=== PATIENT | male | born 1960 | race Caucasian/White ===

== ENCOUNTER 2017-03-12 07:35 | Day surgery (SDC) | payer OTHER ==
[2017-03-12] MEDS ORDERED: DIAZEPAM 5 MG TAB PO ONE (07:45)
[2017-03-12] MEDS ORDERED: diphenhydrAMINE 25 MG CAP PO ONE ×2 (07:45→08:17)
[2017-03-12] MEDS ORDERED: ASPIRIN EC 325 MG TAB PO ONE ×2 (07:45→08:17)
[2017-03-12] MEDS ORDERED: FAMOTIDINE 20 MG TAB PO ONE (07:45)
[2017-03-12] MEDS ORDERED: NS 1,000 ML IV ONE (07:45)
--- NOTE | 2017-03-12 08:03 | CPEKG ---
Heart Rate: 90 RR Interval: 667 P-R Interval: 212 QRSD Interval: 86 QT Interval: 404 QTC Interval: 495 P [place]: 55 QRS [place]: 23 T Wave [place]: 52 EKG Severity - ABNORMAL ECG - EKG Impression: SINUS RHYTHM EKG Impression: FIRST DEGREE AV BLOCK EKG Impression: BORDERLINE T WAVE ABNORMALITIES EKG Impression: BORDERLINE PROLONGED QT INTERVAL Electronically Signed By: Yudi Monique 12-Mar-2017 08:29:57
[2017-03-12] MEDS ORDERED: FAMOTIDINE 20 MG TAB ONE (08:17)
[2017-03-12] MEDS ORDERED: DIAZEPAM 5 MG TAB ONE (08:17)
[2017-03-12 08:24] LABS: % IMMATURE GRANULYOCYTES 0.2 % (0.0-1.1); ABSOLUTE IMMATURE GRANULOCYTES 0.02 10^3/uL (0.00-0.10); ADD DIFF? NO; ADD MORPH? NO; ADD SCAN? NO; ATYPICAL LYMPHOCYTE FLAG 0 (0-99); FRAGMENT RBC FLAG 0 (0-99); HEMATOCRIT 42.2 % (40.0-51.0); HEMOGLOBIN 14.8 g/dL (13.7-17.5); LEFT SHIFT FLG 0 (0-99); LIPEMIA HEMOLYSIS FLAG 90 (0-99); MEAN CELL HEMOGLOBIN 30.6 pg (27.9-34.1); MEAN CELL HEMOGLOBIN CONCENTR. 35.1 g/dL (32.4-36.7); MEAN CELL VOLUME 87.4 fL (81.5-99.8); MEAN PLATELET VOLUME 9.5 fL (8.7-11.7); PLATELET CLUMPS FLAG 10 (0-99); PLATELET COUNT 188 10^3/uL (150-400); RED BLOOD CELL COUNT 4.83 10^6/uL (4.40-6.38); RED CELL DISTRIBUTION WIDTH 12.8 % (11.5-15.2)
[2017-03-12 08:33] LABS: INR 1.14 (0.83-1.16); PROTIME(PATIENT) 14.8 SEC (12.0-15.0)
[2017-03-12 08:49] LABS: ANION GAP 14 mEq/L (8-16); CALCIUM 9.5 mg/dL (8.5-10.4); CARBON DIOXIDE 22 mEq/l (22-31); CHLORIDE 107 mEq/L (97-110); CREATININE 0.8 mg/dL (0.7-1.3); GLOMERULAR FILTRATION RATE > 60; GLUCOSE 179 mg/dL (70-100); POTASSIUM 4.3 mEq/L (3.5-5.2); SODIUM 143 mEq/L (134-144)
[2017-03-12] MEDS ORDERED: LIDOCAINE 1% 300 MG/30 ML SDV ONE (08:51)
[2017-03-12] MEDS ORDERED: VERAPAMIL 5 MG/2 ML VIAL ONE (08:52)
[2017-03-12] MEDS ORDERED: MIDAZOLAM 2 MG/2 ML VIAL ONE (08:52)
[2017-03-12] MEDS ORDERED: HEPARIN 10,000 UNIT/10 ML MDV ONE (08:52)
[2017-03-12] MEDS ORDERED: fentaNYL 100 MCG/2 ML INJ ONE (08:52)
[2017-03-12] MEDS ORDERED: IOPAMIDOL (ISOVUE-370) 150 ML BTL IV ONE (08:53)
[2017-03-12 09:29] LABS: HEMOGLOBIN A1C 6.8 % (4.0-6.0)
[2017-03-12 09:33] LABS: CHOLESTEROL 166 mg/dL (140-220); CHOLESTEROL/HDL RATIO 5.35 RATIO (1.00-4.97); HIGH DENSITY LIPOPROTEIN 31 mg/dL (40-65); LOW DENSITY LIPOPROTEIN 121 mg/dL (80-100); NON-HIGH DENSITY LIPOPROTEIN 135 mg/dL (90-129); TRIGLYCERIDE 74 mg/dL (40-150); VERY LOW DENSITY LIPOPROTEINS 14 mg/dL (8-25)
[2017-03-12] MEDS ORDERED: HYDROCODONE/APAP 5/325 TAB PO PRN (10:41)
[2017-03-12] MEDS ORDERED: ATROPINE SULFATE 1 MG/10 ML SYR IVP PRN (10:41)
[2017-03-12] MEDS ORDERED: ONDANSETRON 4 MG/2 ML VIAL IVP PRN (10:41)
--- NOTE | 2017-03-12 10:45 | PDDXCAT ---
Diagnostic Cath Note - . 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 LAD: Mild irregularities. LCX: Mild irregularities. RCA: Mild irregularities. Complications: None Estimated blood loss: <50ml Closure method: manual pressure Assessment: Mild diffuse coronary atherosclerosis.
== END 2017-03-12 17:19 | disposition home or self-care (01) ==
LOC: FCATH 07:35
PROVIDERS: ATTEND Internal Medicine Interventional Cardiology
PROC: B2111ZZ Fluoroscopy of Multiple Coronary Arteries using Low Osmolar Contrast (ICD-10-PCS; principal; 2017-03-12)
PROC: B2151ZZ Fluoroscopy of Left Heart using Low Osmolar Contrast (ICD-10-PCS; principal; 2017-03-12)
PROC: 4A023N7 Measurement of Cardiac Sampling and Pressure, Left Heart, Percutaneous Approach (ICD-10-PCS; principal; 2017-03-12)
DX: Q23.1 Congenital insufficiency of aortic valve (principal); I71.9 Aortic aneurysm of unspecified site, without rupture; I10 Essential (primary) hypertension; E11.9 Type 2 diabetes mellitus without complications; G47.33 Obstructive sleep apnea (adult) (pediatric)
CPT/HCPCS: J0461; J1644; J2250; J3010; Q9967

== ENCOUNTER → 2017-03-15 | Outpatient (CLI) | payer OTHER ==
[~2017-03-15] MED LIST: IOPAMIDOL (ISOVUE 370) 100 ML BTL IV ONE
== END ==
LOC: CIMAGING 13:55
PROVIDERS: ATTEND Internal Medicine Interventional Cardiology
DX: I99.9 Unspecified disorder of circulatory system (principal); J40 Bronchitis, not specified as acute or chronic; R59.9 Enlarged lymph nodes, unspecified
CPT/HCPCS: 71275-PO; Q9967

== ENCOUNTER 2017-03-16 07:15 | Inpatient (IN) | payer OTHER ==
--- NOTE | 2017-03-12 10:39 | PDHPUP ---
History & Physical Update H&P update statement: This history and physical update is based on an assessment of the patient which was completed after admission or registration (within 24 hours), but prior to the surgery/procedure. H&P update: H&P reviewed & patient examined, no change in patient's condition since H&P completed
--- NOTE | 2017-03-12 10:40 | PDPROPOC ---
Sedation Plan of Care Sedation Plan of Care: vital signs stable, mental status noted, patient educated of risks, benefits, alternatives, patient can tolerate sedation ASA Classification: ASA 2 Planned drugs: fentanyl, midazolam Mallampati Score: Class 2 Mallampati Reference Image:
[2017-04-30] MEDS ORDERED: MUPIROCIN 2% 22 GM OINT NS ONE (06:00)
[2017-04-30] MEDS ORDERED: CITRATE DEXTROSE SOLN 500 ML BAG MISC ONE (06:00)
[2017-04-30] MEDS ORDERED: MANNITOL 25% 12.5 GM/50 ML VIAL IVP ONE (06:00)
[2017-04-30] MEDS ORDERED: NOREPINEPHRINE BITARTRATE 16 MG in NS 250 ML IV ONE (06:00)
[2017-04-30] MEDS ORDERED: SODIUM BICARBONATE 20 MEQ, LIDOCAINE 1% 10 ML in NORMOSOL-R 1,000 ML MISC ONE (06:00)
[2017-04-30] MEDS ORDERED: TRANEXAMIC ACID 1,000 MG in NS (SYRINGE) 50 ML IV ONE (06:00)
[2017-04-30] MEDS ORDERED: DOPamine 400 MG in D5W 250 ML IV ONE (06:00)
[2017-04-30] MEDS ORDERED: ceFAZolin 2 GM/SWFI 2 GM/20 ML SYR IVP ONE (06:00)
[2017-04-30] MEDS ORDERED: INSULIN REGULAR HUMAN 100 UNIT in NS 100 ML IV ONE (06:00)
[2017-04-30] MEDS ORDERED: niCARdipine/NACL 200 ML IV SCH (06:00)
[2017-04-30] MEDS ORDERED: PHENYLEPHRINE HCL 50 MG in NS 250 ML IV ONE (06:00)
[2017-04-30] MEDS ORDERED: MILRINONE/DEXTROSE/100 ML BAG IV ONE (06:15)
[2017-04-30] MEDS ORDERED: CALCIUM CHLORIDE 1 GM/10 ML INJ ONE ×2 (06:15→06:19)
[2017-04-30] MEDS ORDERED: PROTAMINE SULFATE 50 MG/5 ML VIAL IVP ONE (06:15)
[2017-04-30] MEDS ORDERED: HEPARIN 10,000 UNIT/10 ML MDV (1,000 UNIT/ML) ONE ×2 (06:16→06:19)
[2017-04-30] MEDS ORDERED: NA BICARBONATE 50 MEQ/50 ML VIAL ONE (06:16)
[2017-04-30] MEDS ORDERED: ADENOSINE 6 MG/2 ML VIAL ONE (06:17)
[2017-04-30] MEDS ORDERED: DOPamine/DEXTROSE/250 ML BAG IV ONE (06:17)
[2017-04-30] MEDS ORDERED: niCARdipine/NACL/200 ML BAG IV ONE (06:17)
[2017-04-30] MEDS ORDERED: AMIODARONE HCL 150 MG/3 ML VIAL ONE ×2 (06:17→06:20)
[2017-04-30] MEDS ORDERED: ALBUMIN 5% 250 ML BOTTLE IV ONE (06:18)
[2017-04-30] MEDS ORDERED: ceFAZolin 1 GM VIAL ONE (06:18)
[2017-04-30] MEDS ORDERED: LIDOCAINE 2% 100 MG/5 ML SYR ONE (06:19)
[2017-04-30] MEDS ORDERED: MAGNESIUM SULFATE 1 GM/2 ML VIAL ONE (06:20)
[2017-04-30] MEDS ORDERED: CITRATE DEXTROSE SOLN 500 ML BAG ONE (06:20)
[2017-04-30] MEDS ORDERED: methylPREDNISolone SOD SUCC 1 GM/8 ML VIAL ONE (06:20)
--- NOTE | 2017-04-30 06:21 | PDGENHP ---
History and Physical - Chief Complaint severe aortic stenosis - History of Present Illness 56M with severe here for elective valve replacement. Pt reports SMIHT when climbing stairs which has gradually worsened over the past couple months. Denies light-headedness, syncope, chest pain, orthopnea, or LE edema. History Information - Allergies/Home Medication List Allergies/Adverse Reactions: Penicillins Allergy (Verified 04/30/17 08:08) Home Medications: Albuterol [Proventil Inhaler HFA (*)] 1 - 2 puffs IH DAILY PRN 03/08/17 [Last Taken 03/29/17] Aspirin EC [Aspirin EC 81 mg (*)] 81 mg PO DAILY 03/08/17 [Last Taken 04/23/17] Fluticasone/Salmeter 250/50Mcg [Advair 250/50 (*)] 1 puffs IH DAILY PRN [Last Taken 04/28/17] Metoprolol Succinate Xr [Toprol Xl 25 mg (*)] 25 mg PO HS 03/08/17 [Last Taken 04/28/17] metFORMIN HCL [Glucophage 500 mg (*)] 500 mg PO BIDMEAL 03/08/17 [Last Taken ] I have personally reviewed and updated: medical history, social history, surgical history - Past Medical History asthma, diabetes type 2, hypertension Additional medical history: obesity, sleep apnea - Surgical History Additional surgical history: tonsillectomy, vasectomy - Social History Smoking Status: Former smoker Review of Systems Review of Systems: ROS: 10pt was reviewed & negative except for what was stated in HPI & below Physical Exam Physical Exam: Constitutional: no apparent distress, appears nourished, not in pain, obese Eyes: anicteric sclera Ears, Nose, Mouth, Throat: hearing normal Cardiovascular: regular rate and rhythym Respiratory: no respiratory distress Gastrointestinal: soft, non-tender abdomen Skin: warm, normal color Musculoskeletal: full muscle strength Neurologic: AAOx3, sensation intact bilaterally Psychiatric: interacting appropriately, not anxious, not encephalopathic, thought process linear Lab Data & Imaging Review Patient ABO/Rh A POSITIVE 04/28/17 17:55 Antibody Screen NEGATIVE 04/28/17 17:55 All pre-op labs in [facility] reviewed. Visualized and Interpreted Chest x-ray results: Yes Chest X-Ray results: no infiltrate Visualized and Interpreted imaging results: Yes Interpretation: 02/2017 CT chest: aortic root 2.8 cm, aorta at PA 3.5 cm. 2016 ECHO: severe calcified , AV mean gradient 91 mmHg, mild MR diastolic dysfunction, EF 59% Visualized and Interpreted EKG results: Yes EKG Interpretation: Positive for: normal sinsus rhythm EKG additional interpertation: 1st degree AV block Assessment & Plan Assessment: 56M with severe Plan: AVR, possible root replacement
[2017-04-30] MEDS ORDERED: LR 1,000 ML IV ONE (06:24)
[2017-04-30] MEDS ORDERED: MIDAZOLAM 2 MG/2 ML VIAL IVP ONE (07:10)
[2017-04-30] MEDS ORDERED: MIDAZOLAM 2 MG/2 ML VIAL ONE (07:11)
--- NOTE | 2017-04-30 07:11 | PDANEPAE ---
ANE History of Present Illness here for avr ANE Past Medical History - Cardiovascular History Hx Hypertension: Yes Hx Coronary Artery / Peripheral Vascular Disease: Yes Cardiovascular History Comment: HYPERLIPIDEMIA. AORTIC ANEURYSM. AORTIC VALVE STENOSIS. BICUSPID AORTIC VALVE - Pulmonary History Hx COPD: No Hx Asthma/Reactive Airway Disease: Yes Hx Recent Upper Respiratory Infection: No Hx Oxygen in Use at Home: No Hx Sleep Apnea: Yes Sleep Apnea Screening Result - Last Documented: Positive Pulmonary History Comment: SEASONAL/ENVIRONMENTAL ALLERGIES. POS SLEEP APNEA W/ CPAP - Neurologic History Hx Cerebrovascular Accident: No Hx Seizures: No Hx Dementia: No - Endocrine History Hx Diabetes: Yes Endocrine History Comment: DM II - METFORMIN. A1C 7.1 - Renal History Hx Renal Disorders: No Renal History Comment: KIDNEY STONES IN PAST - LITHOTRIPSY - Liver History Hx Hepatic Disorders: No - Neurological & Psychiatric Hx Hx Neurological and Psychiatric Disorders: No - Cancer History Hx Cancer: No - Congenital Disorder History Hx Congenital Disorders: No - GI History Hx Gastrointestinal Disorders: No - Other Health History Other Health History: NEG - Chronic Pain History Chronic Pain: No - Surgical History Prior Surgeries: LITHOTRIPSY. TONSILLECTOMY. VASECTOMY. COLONOSCOPY ANE Review of Systems Review of systems is: negative Review of Systems: - Exercise capacity Exercise capacity: <4 METS METS (RN): 3 METS ANE Patient History - Allergies Allergies/Adverse Reactions: Penicillins Allergy (Verified 04/30/17 06:40) - Home Medications Home medications: home medication list seen and reviewed Home Medications: Albuterol [Proventil Inhaler HFA (*)] 1 - 2 puffs IH DAILY PRN 03/08/17 [Last Taken 03/29/17] Aspirin EC [Aspirin EC 81 mg (*)] 81 mg PO DAILY 03/08/17 [Last Taken 04/23/17] Fluticasone/Salmeter 250/50Mcg [Advair 250/50 (*)] 1 puffs IH DAILY PRN [Last Taken 04/28/17] Metoprolol Succinate Xr [Toprol Xl 25 mg (*)] 25 mg PO HS 03/08/17 [Last Taken 04/28/17] metFORMIN HCL [Glucophage 500 mg (*)] 500 mg PO BIDMEAL 03/08/17 [Last Taken ] - NPO status NPO Status: no food or drink >8 hours NPO Since - Liquids (Date): 04/29/17 NPO Since - Liquids (Time): 21:00 NPO Since - Solids (Date): 04/29/17 NPO Since - Solids (Time): 20:00 - Smoking Hx Smoking Status: Former smoker ANE Labs/Vital Signs - Vital Signs Vital Signs: reviewed preoperatively; see RN documention for details Blood Pressure: 159/110 Heart Rate: 95 Respiratory Rate: 17 O2 Sat (%): 94 Height: 168.91 cm Weight: 99.337 kg ANE Physical Exam - Airway Neck exam: FROM, short neck Mallampati Score: Class 1 - Pulmonary Pulmonary: no respiratory distress - Cardiovascular Cardiovascular: regular rate and rhythym - ASA Status ASA Status: IV ANE Anesthesia Plan Anesthesia Plan: general endotracheal anesthesia Lines/Monitors: central line, PETER
[2017-04-30] MEDS ORDERED: fentaNYL 250 MCG/5 ML INJ ONE ×2 (07:13→11:08)
[2017-04-30] MEDS ORDERED: PROPOFOL/EMULSION 500 MG/50 ML BOTTLE IV ONE (07:14)
[2017-04-30] MEDS ORDERED: KETAMINE 200 MG/20 ML VIAL ONE (07:18)
[2017-04-30] MEDS ORDERED: DEXMEDETOMIDINE HCL 400 MCG in D5W 100 ML IV SCH (11:00)
[2017-04-30] MEDS ORDERED: DEXMEDETOMIDINE IN 0.9 % NACL 50 ML IV SCH (11:00)
[2017-04-30] MEDS ORDERED: DEXMEDETOMIDINE/NS 4MCG/ML 50 ML BTL IV ONE (11:03)
[2017-04-30] MEDS ORDERED: MINERAL OIL 10 ML VIAL ONE (11:45)
[2017-04-30] MEDS ORDERED: MEPERIDINE 25 MG/ML SYR IVP PRN (12:19)
[2017-04-30] MEDS ORDERED: MAGNESIUM SULF 2 GM/WATER 50 ML IV ONE (12:19)
[2017-04-30] MEDS ORDERED: ONDANSETRON 4 MG/2 ML VIAL IVP PRN (12:19)
[2017-04-30] MEDS ORDERED: MAGNESIUM HYDROXIDE 30 ML UDCUP PO PRN (12:19)
[2017-04-30] MEDS ORDERED: ONDANSETRON DISINTEGRATING 4 MG TAB PO PRN (12:19)
[2017-04-30] MEDS ORDERED: BISACODYL 10 MG SUPP PR PRN (12:19)
[2017-04-30] MEDS ORDERED: METOCLOPRAMIDE 10 MG/2 ML VIAL IVP PRN (12:19)
[2017-04-30] MEDS ORDERED: PANTOPRAZOLE SODIUM 40 MG VIAL IVP ONE (12:19)
[2017-04-30] MEDS ORDERED: D50W 25 GM/50 ML SYR IVP PRN (12:19)
[2017-04-30] MEDS ORDERED: LACTULOSE 20 GM/30 ML UDCUP PO PRN (12:19)
[2017-04-30] MEDS ORDERED: POTASSIUM Cl (KCl) 50 ML IV PRN (12:19)
[2017-04-30] MEDS ORDERED: ACETAMINOPHEN 650 MG SUPP PR PRN (12:19)
[2017-04-30] MEDS ORDERED: SODIUM CL NASAL 45 ML BTL EACHNARE PRN (12:19)
[2017-04-30] MEDS ORDERED: POLYETHYLENE GLYCOL 3350 17 GM PKT PO PRN (12:19)
[2017-04-30] MEDS ORDERED: CEPACOL LOZENGE PO PRN (12:19)
[2017-04-30] MEDS ORDERED: ACETAMINOPHEN 325 MG TAB PO PRN (12:19)
[2017-04-30] MEDS ORDERED: NS 1,000 ML IV SCH (12:30)
[2017-04-30] MEDS ORDERED: INSULIN REGULAR HUMAN 100 UNIT in NS 100 ML IV SCH (12:30)
[2017-04-30] MEDS ORDERED: SODIUM BICARBONATE 50 MEQ/50 ML SYR ONE (13:05)
[2017-04-30] MEDS: ALBUMIN 5% 250 ML IV PRN ×2 (13:13→20:23)
[2017-04-30] MEDS: fentaNYL 100 MCG/2 ML INJ IVP PRN ×4 (13:14→23:26)
[2017-04-30] MEDS ORDERED: SODIUM BICARBONATE 50 MEQ/50 ML SYR IV ONE ×2 (13:15→14:00)
--- NOTE | 2017-04-30 13:51 | GOP ---
[f rep st] OPERATIVE REPORT DATE OF OPERATION: 04/30/2017 SURGEON: Piyush Weber DO SUPERIOR COURT JUDGE: Keyshawn Ricks PA-C. PREOPERATIVE DIAGNOSIS: 1. Critical aortic stenosis with aortic insufficiency. 2. Small aortic anulus and outflow tract as well as sinotubular junction. 3. Severe left ventricular hypertrophy. 4. Morbid obesity. POSTOPERATIVE DIAGNOSIS: 1. Critical aortic stenosis with aortic insufficiency. 2. Small aortic anulus and outflow tract as well as sinotubular junction. 3. Severe left ventricular hypertrophy. 4. Morbid obesity. PROCEDURE PERFORMED: 1. Aortic root replacement with a #23 Freestyle with reimplantation of the coronary arteries and rep lacement of the proximal ascending aorta. 2. Atrial clip of the left atrial appendage. FINDINGS: DESCRIPTION OF PROCEDURE: Patient was consented for severely symptomatic aortic stenosis. He was br ought to the operating room, intubated, monitoring lines were placed. He was prepped and draped in s terile classical manner. Timeout was confirmed with the team. We then performed a sternotomy and he parinized the patient. The patient was noted to be markedly volume overloaded with a CVP of 22 on en tering the OR without receiving IV fluids from Anesthesia. He had mild mitral insufficiency on trans esophageal echo with critical aortic stenosis and a recognized small outflow tracts, small sinuses, a nd a small sinotubular junction with heavy calcification on preoperative echo and confirmed intraoper atively. He was heparinized, cannulated in the standard fashion. Bypass was begun. A cardioplegic arrest was obtained with intermittent antegrade cardioplegia, retrograde cardioplegia, topical hypoth ermia, and systemic cooling. It should be noted that with the aorta open, retrograde cardioplegia re sulted in good blood flow from both coronary ostia confirming adequacy of coverage with retrograde al one. Coronary ostia openings were quite small measuring probably 3 mm for the left and 2.5 mm for th e right. The aortic valve appeared to be bicuspid. It was heavily calcified, and anulus was quite s mall. The valve was excised. Anulus was debrided. The mitral valve was debrided for calcification down on the anterior leaflet. LV chamber was copiously irrigated. He had heavy calcification around the right and noncommissure extending down into the membranous septum, which was debrided. We then copiously irrigated the LV chamber. He sized for a very tight 23 [place] valve, which I felt would b e too small of an orifice for this gentleman. I looked expanding his outflow tract with a pericardia l patch into the mitral valve but felt that we would not likely be able to gain much distance and als o because he had heavy calcification in the anulus between the aortic and mitral valve extending into the muscle. For that reason, I felt that the safest although more complicated operation would be a total root replacement with a freestyle valve. He, I, and his had discussed that preoperatively , and I felt this would allow him the lowest resistance and best hemodynamics. It should be noted he had markedly severe left ventricular hypertrophy circumferentially as noted on echo as well. I then excised the coronary arteries as buttons which had heavy calcification around the orifices, which wa s carefully debrided. We then, because of the friable anulus and very small anulus, used interrupted 2-0 Tycron pledgeted mattress sutures carefully circumferentially around the anulus taking great car e to avoid the conduction system where the calcium had been debrided. We then sized him for a 23 mm Freestyle valve which was sutured in place, rotated 120 degrees without difficulty carefully tying in the friable areas. We then excised a button from the pig's noncoronary sinus which became the patie nt's left coronary sinus and reimplanted the left coronary artery with a continuous running 5-0 Prole ne reinforced in several sites with BioGlue external application. We then measured a very difficult placement of the right coronary artery since it was a bicuspid valve very close to the anulus and aga in calcified transmurally on the lower portion of the right ostium. This actually lined up well with the patient's left coronary sinus and ostium which was excised and sewn end-to-side with a continuou s running 5-0 Prolene suture with careful reinforcement in the calcified areas. BioGlue was applied externally. Rewarming was begun. I then anastomosed aorta to graft with a continuous running 3-0 Pr olene suture reinforced with BioGlue. A 35 mm AtriClip was placed across the base of the left atrial appendage. Cross-clamp was removed with suction on the ascending aortic vent and ascending aorta in Trendelenburg until no further air was identified. We then removed the LV sump and intermittently a spirated through the LV apex for any residual apical air. No further air was identified. He was wea ethel in Trendelenburg. The transaortic gradient on 3 mcg of dopamine with a mean gradient of 9 with g ood valvular function. The mitral regurg remained mild. LV function appeared to be approximately 40 % as per pre bypass measurements although this conflicted with his preoperative echo. Severe LVH per sisted. The heparin was reversed with protamine. The cannula was removed and oversewn. The [facility] coronary button was oversewn with 4-0 Prolene felt reinforcement sutures. An atrial clip was ash andreea across the base of the left atrial appendage. He remained hemodynamically stable. No bleeding w as encountered. Chest was closed with 2 mediastinal drains. The thymic fat and pericardium were nuvia sed. Sternum was closed in standard fashion. Patient was returned to ICU in stable condition. /[id number]/MODL
[2017-04-30] MEDS ORDERED: ALBUMIN 5% 250 ML IV ONE (14:00)
[2017-04-30] MEDS: ceFAZolin 2 GM/DEXTROSE 100 ML IV SCH ×2 (14:20→22:37)
--- NOTE | 2017-04-30 14:50 | CPEKG ---
Heart Rate: 87 RR Interval: 690 P-R Interval: 184 QRSD Interval: 80 QT Interval: 428 QTC Interval: 515 P [place]: 72 QRS [place]: 22 T Wave [place]: 15 EKG Severity - ABNORMAL ECG - EKG Impression: SINUS RHYTHM EKG Impression: PROLONGED QT INTERVAL Electronically Signed By: Eleazar Galdamez 01-May-2017 09:02:14
--- NOTE | 2017-04-30 15:25 | ASMTCMCOM ---
CM Note CM Note Notes: Patient is s/p Aortic root and ascending aorta replacement with Dr Weber today. He is extubated and stable in the ICU. and family are at bedside. PT/OT have been ordered, as well as consults for cardiac rehab. We will await recommendations for discharge planning. Date Signed: 04/30/2017 03:25 PM Electronically Signed By:Sanjuana Lainez RN
--- NOTE | 2017-04-30 15:41 | GCON ---
[f rep st] CONSULTATION PULMONARY/CRITICAL CARE CONSULTATION DATE OF CONSULTATION: 04/30/2017 REFERRING PHYSICIAN: Piyush Weber DO REASON FOR REFERRAL: Evaluation and management of respiratory failure with obstructive sleep apnea and asthma. HISTORY: The patient is a 56-year-old male with a history of severe who underwent elective aortic root and valve replacement today. He presented to the intensive care unit intubated. Because of the concern regarding his underlying obstructive sleep apnea and asthma, as well as a somewhat difficult intubation, I was asked to assist in the decision regarding the time of extubation. The patient is somewhat somnolent, but arousable and follows commands. He denies dyspnea or chest pain currently. PAST MEDICAL HISTORY: 1. Aortic stenosis. 2. Type 2 diabetes. 3. Hypertension. 4. Asthma. 5. Obesity. 6. Sleep apnea. The patient had a home sleep test in September 2015 that showed an apnea-hypopnea index of 58.7. He was prescribed CPAP, which he uses regularly with an auto-titrating pressure range of 8-15 cm H2O and good efficacy. His last download showed that he used CPAP for just over 5 hours a night. MEDICATIONS: At the time of admission include albuterol, Advair 250/50, aspirin , metoprolol, and metformin. ALLERGIES: Penicillin. SOCIAL HISTORY: The patient is a former smoker. 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 REVIEW OF SYSTEMS: A 10-point review of systems adds nothing to the history of present illness. PHYSICAL EXAMINATION: GENERAL: The patient is somnolent but arousable and in no acute distress. VITAL SIGNS: Blood pressure 123/57 with a heart rate of 83 , his oxygen saturations are in the 90s on 60% oxygen. HEENT: Normocephalic and atraumatic. No icterus. NECK: No JVD. Trachea is midline. CHEST: Clear to auscultation. CARDIAC: Regular rate and rhythm without murmur. He has a midline sternotomy scar and mediastinal and subxiphoid chest tubes. ABDOMEN: Soft, nontender. Bowel sounds are hypoactive. EXTREMITIES: No clubbing, cyanosis, or edema. NEURO: The patient is somnolent but arousable and follows commands. He is able to move all 4 extremities with no apparent sensory or motor deficits. LABORATORY DATA: Glucose is 187. A chest x-ray shows an appropriately placed endotracheal tube with some pleural effusions and interstitial edema/ atelectasis. Images reviewed by me. ASSESSMENT: 1. Status post aortic valve and root replacement. The patient had an unremarkable intraoperative course. 2. Acute hypoxemic respiratory failure. The patient is requiring fairly high oxygen concentration, likely due to some atelectasis and small pleural effusions. Hopefully the effusions will be drained by the chest tubes. He has just moderate minute ventilation and is comfortable, so hopefully can be extubated fairly easily. 3. Obstructive sleep apnea. The patient has severe sleep apnea that is well treated with CPAP that he uses at home. His compliance may be a bit suboptimal with just over 5 hours of usage a night. 4. Hyperglycemia. The patient's 1st blood sugar is 187. Good control of his blood sugars will help improve perioperative/postoperative outcomes. 5. Asthma. The patient does not have any wheezing or respiratory distress currently. RECOMMENDATIONS: 1. Okay to extubate now. He may need moderately high-flow oxygen for a short period of time as he recovers from anesthesia, and may also need CPAP/BiPAP until he has fully recovered from anesthesia. He should use CPAP/BiPAP at any time he is sleeping. We will attempt to get his home unit. 2. Insulin drip for hyperglycemia. 3. Continue Advair and albuterol. 4. Wean oxygen as tolerated. /[id number]/MODL MTDD
[2017-04-30] MEDS: KETOROLAC 15 MG/1 ML SDV IVP SCH ×2 (18:33→23:02)
--- NOTE | 2017-04-30 18:45 | POSTANESTH ---
Post Anesthetic Evaluation Cardiovascular Status: Normal, Stable Respiratory Status: Normal, Stable, Requires Airway Assist Level of Consciousness/Mental Status: Mildly Sleepy, Arousable Pain Control: Adequate, Prn Tx Ordered Nausea/Vomiting Control: Adequate, Prn Tx Ordered Complications Possibly Related to Anesthesia: None Noted
[2017-04-30] MEDS: HYDROCODONE/APAP 5/325 TAB PO PRN (22:35)
[2017-04-30] MEDS: MUPIROCIN 2% 22 GM OINT NS SCH (22:38)
[2017-04-30] MEDS: SENNOSIDES/DOCUSATE SODIUM TAB PO SCH (22:39)
[2017-05-01] MEDS: HYDROCODONE/APAP 5/325 TAB PO PRN ×5 (03:47→20:12)
[2017-05-01 04:20] LABS: PLATELET COUNT 95 10^3/uL (150-400)
[2017-05-01] MEDS: ceFAZolin 2 GM/DEXTROSE 100 ML IV SCH ×3 (05:07→22:32)
[2017-05-01] MEDS: KETOROLAC 15 MG/1 ML SDV IVP SCH ×4 (05:07→22:32)
[2017-05-01] MEDS: HEPARIN 5,000 UNIT/0.5 ML SYR SC SCH (05:16)
[2017-05-01] MEDS: fentaNYL 100 MCG/2 ML INJ IVP PRN (07:36)
--- NOTE | 2017-05-01 07:43 | SOAPPROG ---
SOAP Progress Note Assessment/Plan: Assessment: POD#1 AVR/root #23 Freestyle porcine root, prophylactic AtriClip ligation left atrial appendage BAV w sx severe and small LVOT - Valve and root replaced with porcine root. Antithrombotic prophylaxis with ASA alone pending stability of rhythm. 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 Hemodynamically stable early postop course on low dose dopa. No tachyarrhythmias. Adequately diuresing significant volume overload. Staggered intro of HF regimen when appropriate. Acute expected blood loss anemia with thrombocytopenia - Stable. No blood or blood products transfused. Care with VTE prophylaxis while plts depressed. Nonobstructive CAD - Stable. Secondary prevention with ASA, BB as allowed by BP , and statin when eating well. Hx mild RAD and CHERI on CPAP - Stable. Extubated without incident. Home CPAP in room. Chronic prn MDIs resumed. Prediabetes - Controlled by preop A1c of 6.8%. Postop hyperglycemia managed with low dose insulin gtt. Prompt transition to SSI/OHA expected. Plan: Stop dopa. Colloid prn CVP < 9. Lasix prn CVP > 16. D/C luther. Wrap and cap Vwires. Blakes to bulb suction. Glargine 10u x 1 and wean off insulin gtt. Advance diet as tolerated. Anticipate tx to PCU later today. 05/01/17 07:37 Subjective: Feels well. Slept comfortably in chair. No dizziness or nausea. Pulling 1500 on IS. Only c/o urethral discomfort, better since barron out. Objective: Vital Signs Temp Pulse Resp BP Pulse Ox 37.4 C 89 21 H 106/52 L 96 05/01/17 06:00 05/01/17 06:00 05/01/17 06:00 05/01/17 06:00 05/01/17 06:00 Laboratory Results 05/01/17 04:00 05/01/17 04:00 04/30/17 05/01/17 05/02/17 05:59 05:59 05:59 Intake Total 2009.3 Output Total 2240 Balance -229.7 Holding MAPs > 70 on 2 mcg dopa. HR and rhythm stable. No backup pacing. I/Os balanced. No sig CTOP. CXR-> no PTX, mild pulm vasc congestion, bibasilar atelectasis. Labs as expected. Physical Exam - Physical Exam General Appearance: alert, no apparent distress Respiratory: decreased breath sounds (bases), other (blakes x 2 y-d to pleurovac , serosang drainage, no tidal, no airleak) Cardiac/Chest: regular rate, rhythm, other (Sternum grossly stable. Sternotomy CDI) Abdomen: normal bowel sounds, non-tender, soft Skin: warm/dry Extremities: swelling (1+ generalized) ICD10 Worksheet Patient Problems: Problems Problem Status Onset Acute blood loss anemia Acute Aortic stenosis Acute Status post combined aortic root and valve replacement using stentless bioprosthetic aortic valve Acute
[2017-05-01] MEDS: SENNOSIDES/DOCUSATE SODIUM TAB PO SCH ×2 (08:08→20:01)
[2017-05-01] MEDS: PANTOPRAZOLE SODIUM 40 MG TAB PO SCH (08:09)
[2017-05-01] MEDS: ASPIRIN EC 81 MG TAB PO SCH (08:09)
[2017-05-01] MEDS ORDERED: FLUTICASONE/SALMETER 250/50MCG DISKUS IH PRN (08:56)
[2017-05-01] MEDS ORDERED: ALBUTEROL 60 PUFFS/8 GM MDI IH PRN (08:56)
[2017-05-01] MEDS ORDERED: INSULIN GLARGINE 100 UNITS/ML UNIT SC ONE (09:00)
[2017-05-01] MEDS ORDERED: fentaNYL 100 MCG/2 ML INJ ONE (10:07)
[2017-05-01] MEDS ORDERED: fentaNYL 100 MCG/2 ML INJ IVP ONE (10:30)
[2017-05-01] MEDS: MUPIROCIN 2% 22 GM OINT NS SCH ×2 (11:03→21:00)
[2017-05-01] MEDS ORDERED: fentaNYL 25 MCG PATCH TD SCH (11:15)
[2017-05-01] MEDS ORDERED: fentaNYL 25 MCG PATCH TD ONE (11:30)
[2017-05-01] MEDS ORDERED: OXYCODONE/APAP 5/325 TAB PO PRN (11:40)
[2017-05-01] MEDS: INSULIN LISPRO 100 UNIT/ML SC SCH ×2 (13:07→18:18)
--- NOTE | 2017-05-01 13:53 | PDINTPN ---
[facility] Progress Note Assessment/Plan: Assessment: S/P Aortic Valve replacement: Recovering well CHERI: Severe. On CPAP, but did not use last night since sats were OK on oxygen. DM: BSs 100-145 on Lantus/SSI. Plan:Use CPAP nightly. Reinforced with patient. Continue diabetic diet and SSI. Transfer to [facility]. 05/01/17 13:52 05/01/17 13:53 Subjective: Feels OK, sternal pain improved. Slept OK without CPAP last night. Objective: Vital Signs Temp Pulse Resp BP Pulse Ox 37.3 C 101 H 20 118/71 96 05/01/17 12:00 05/01/17 12:00 05/01/17 12:00 05/01/17 12:00 05/01/17 12:00 Laboratory Results 05/01/17 04:00 05/01/17 10:30 04/30/17 05/01/17 05/02/17 05:59 05:59 05:59 Intake Total 2010.3 Output Total 2240 100 Balance -229.7 -100 Physical Exam - Physical Exam General Appearance: alert, no apparent distress Neck: normal inspection Respiratory: lungs clear, normal breath sounds Cardiac/Chest: regular rate, rhythm, edema Abdomen: normal bowel sounds, non-tender Skin: normal color, warm/dry Extremities: normal inspection Neuro/Psych: alert, normal mood/affect, oriented x 3 ICD10 Worksheet Patient Problems: Problems Problem Status Onset Acute blood loss anemia Acute Aortic stenosis Acute Status post combined aortic root and valve replacement using stentless bioprosthetic aortic valve Acute
[2017-05-01] MEDS ORDERED: FUROSEMIDE 20 MG/2 ML VIAL IVP ONE (15:50)
[2017-05-01] MEDS ORDERED: POTASSIUM CL 10 MEQ TAB PO ONE (15:50)
[2017-05-02] MEDS: traMADol 50 MG TAB PO PRN ×4 (01:56→22:21)
[2017-05-02] MEDS: KETOROLAC 15 MG/1 ML SDV IVP SCH (06:03)
[2017-05-02 06:29] LABS: PLATELET COUNT 82 10^3/uL (150-400)
--- NOTE | 2017-05-02 07:48 | SOAPPROG ---
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 Antithrombotic prophylaxis with ASA alone pending stability of rhythm. 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 No sustained pressor support. No bradyarrhythmias. Significant volume overload well tolerated. Staggered intro of HF regimen in progress. Acute expected blood loss anemia with thrombocytopenia - Stable. No blood or blood products transfused. Care with VTE prophylaxis while plts depressed. Nonobstructive CAD - Stable. Secondary prevention with ASA, BB as allowed by BP , and statin when eating well. Hx mild RAD and CHERI on CPAP - Stable. Extubated without incident. Home CPAP in room. Chronic prn MDIs resumed. Prediabetes - Controlled by preop A1c of 6.8%. Postop hyperglycemia managed with low dose insulin gtt. Transition to home OHA in progress. Plan: TCPW and ant mediastinal drain removed. Stop toradol. Intensify diuresis. Trial 40mg IV lasix this am. Start metoprolol tartrate 12.5 mg BID. Resume 1/2 home dose Metformin. Cont inc activity as tolerated. Baseline postop echo tomorrow. Dispo - Anticipate home without services 05/02/17 07:44 Subjective: Doing ok. Able to sleep in bed last noc. Eating a bit more. BM anticipated. Objective: Vital Signs Temp Pulse Resp BP Pulse Ox 36.9 C 105 H 20 124/71 H 96 05/02/17 07:29 05/02/17 07:29 05/02/17 07:29 05/02/17 07:29 05/02/17 07:29 Laboratory Results 05/02/17 06:20 05/01/17 05/02/17 05/03/17 05:59 05:59 05:59 Intake Total 2009.3 1500 Output Total 2240 1095 250 Balance -229.7 405 -250 ST/AT with uptrending SBP. Suppl O2 req down to 2 lpm. CXR -> mild pulm vasc congestion, decreased bibasilar atelectasis. Mediastinal drain at removal criteria. Sl positive fluid balance. +9 kg overall. Fall in plt count to 82, likely sec to scheduled NSAID Physical Exam - Physical Exam General Appearance: alert, no apparent distress Respiratory: decreased breath sounds (bases), other (blakes x 2 to bulb suction , serosang drainage. Ant med drain removed without incident.) Cardiac/Chest: regular rate, rhythm, tachycardia, friction rub, other ( Sternotomy CDI. 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
[2017-05-02] MEDS ORDERED: POTASSIUM CL 20 MEQ TAB PO ONE (08:00)
[2017-05-02] MEDS ORDERED: FUROSEMIDE 40 MG/4 ML VIAL IVP ONE (08:00)
[2017-05-02] MEDS: ASPIRIN EC 81 MG TAB PO SCH (08:31)
[2017-05-02] MEDS: SENNOSIDES/DOCUSATE SODIUM TAB PO SCH ×2 (08:31→20:47)
[2017-05-02] MEDS: PANTOPRAZOLE SODIUM 40 MG TAB PO SCH (08:32)
[2017-05-02] MEDS: METOPROLOL TARTRATE 25 MG TAB PO SCH ×2 (08:32→20:47)
[2017-05-02] MEDS: INSULIN LISPRO 100 UNIT/ML SC SCH ×3 (08:51→18:35)
[2017-05-02] MEDS: MUPIROCIN 2% 22 GM OINT NS SCH (08:52)
[2017-05-02] MEDS ORDERED: metFORMIN HCL 500 MG TAB PO SCH (09:00)
[2017-05-02] MEDS: FUROSEMIDE 40 MG/4 ML VIAL IVP SCH (15:23)
[2017-05-02] MEDS: POTASSIUM CL 20 MEQ TAB PO SCH ×2 (15:24→20:47)
[2017-05-02] MEDS: metFORMIN HCL 500 MG TAB PO SCH (18:34)
[2017-05-03] MEDS: METOPROLOL TARTRATE 25 MG TAB PO SCH ×3 (07:35→20:51)
[2017-05-03] MEDS: traMADol 50 MG TAB PO PRN ×3 (07:35→22:18)
[2017-05-03] MEDS: FUROSEMIDE 40 MG/4 ML VIAL IVP SCH ×2 (07:35→14:43)
[2017-05-03] MEDS: ASPIRIN EC 81 MG TAB PO SCH (07:35)
[2017-05-03] MEDS: SENNOSIDES/DOCUSATE SODIUM TAB PO SCH (07:36)
[2017-05-03] MEDS: PANTOPRAZOLE SODIUM 40 MG TAB PO SCH (07:36)
[2017-05-03] MEDS: metFORMIN HCL 500 MG TAB PO SCH ×2 (07:36→18:20)
[2017-05-03] MEDS: POTASSIUM CL 20 MEQ TAB PO SCH ×2 (07:36→20:52)
--- NOTE | 2017-05-03 07:40 | SOAPPROG ---
SOAP Progress Note Assessment/Plan: Assessment: POD#3 AVR/root #23 Freestyle porcine root, prophylactic AtriClip ligation left atrial appendage BAV w sx severe and small LVOT - Valve and root replaced with porcine root. Antithrombotic prophylaxis with ASA alone pending stability of rhythm. 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 No sustained pressor support. No bradyarrhythmias. Significant volume overload well tolerated. Staggered intro of HF regimen in progress. Acute expected blood loss anemia with thrombocytopenia - Stable. No blood or blood products transfused. Platelet rebound noted. Nonobstructive CAD - Stable. Secondary prevention with ASA, statin, and BB uptitrated as tolerated. Hx mild RAD and CHERI on CPAP - Stable. Extubated without incident. Home CPAP in room. Chronic prn MDIs resumed. Prediabetes - Controlled by preop A1c of 6.8%. Transitioned from insulin to home Metformin regimen. Plan: Remove post mediastinal drain. Cont BID IV lasix 40 mg. Inc metoprolol tartrate to 25 mg BID. Resume VTE prophylaxis with SQ hep. Wean O2. Baseline postop echo today. Dispo - Anticipate home without services 05/03/17 07:37 Subjective: Slept well. Happy with overnight weight loss. Pain controlled with Tramadol. + BM. Objective: Vital Signs Temp Pulse Resp BP Pulse Ox 37.3 C 102 H 12 137/88 H 95 05/03/17 07:20 05/03/17 07:20 05/03/17 07:20 05/03/17 07:20 05/03/17 07:20 Laboratory Results 05/03/17 05:00 05/03/17 05:00 05/02/17 05/03/17 05/04/17 05:59 05:59 05:59 Intake Total 1500 2000 Output Total 1095 2565 Balance 405 -565 SR/ST. SBPs > 100 on low dose metoprolol. Excellent sats on 2 lpm O2, likely could wean to 1 lpm. Improving fluid balance. Down 1.9 kg/24h, now +6.7 kg. CTOP at removal criteria. Platelets appear to be rebounding. 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
[2017-05-03] MEDS: INSULIN LISPRO 100 UNIT/ML SC SCH ×3 (09:25→18:12)
--- NOTE | 2017-05-03 10:54 | ECHO ---
[email or web address] [address] [address] Main: [phone] Fax: Transthoracic Echocardiogram Name: PORTER HOOKER MR#: [id number] Study Date: 05/03/2017 Study Time: 10:10 AM Date of : 1960 Age: 56 year(s) Height: 165.1 cm (65 in.) Weight: 107.96 kg (238 lb.) BSA: 2.13 m2 Gender: Male Examination: Echo Indication: Routine baseline postop s/p AVR/root #23 medtronic freestyle porcine root Image Quality: Contrast: Requested by: Inga Peña BP: 137 mmHg/88 mmHg Heart Rate: Rhythm: Indication: Routine baseline postop s/p AVR/root #23 medtronic freestyle porcine root Procedure Staff Digital Tech: Aylin Ulloa [facility] Reading Physician: Daren Hall Requesting Provider: Conclusions: No pericardial effusion. Concentric left ventricular hypertrophy. Aortic valve prosthesis with gradients as reported above. Query dynamic left ventricle as etiology. Measurements: Chambers Valvular Assessment AV/MV Valvular Assessment TV/PV Normal Normal Normal Name Value Range Name Value Range Name Value Range LVEF (MOD4): 65 % (>=55 %) AV Vmax: 3.16 m/s (1 m/s-1.7 TR Vmax: 3.34 mm/s ( - ) EF Range: 60-65 % m/s) TR PGmax: 45 mmHg ( - ) AV maxP mmHg ( - ) syst. PAP: 50 mmHg ( - ) AV meanP mmHg ( - ) MV E Vmax: 1.17 m/s ( - ) MV A Vmax: 0.71 m/s ( - ) MV E/A: 1.65 ( - ) Continued Measurements: Chambers Valvular Assessment AV/MV Valvular Assessment TV/PV Name Value Name Value Name Value LADs: 3.8 cm MV E/E' Septal: 17.60 CVP (est.): 5 mmHg LADs Lon.6 cm MV E/E' Lateral: 21.00 LA Area: 21.5 cm2 Findings: Left Ventricle: Normal size left ventricle. Mild concentric LV hypertrophy. Normal global systolic LV function. The ejection fraction is estimated to be 60-65 %. Right Ventricle: Patient: PORTER HOOKER Study Date: 05/03/2017 Page 1 of 2 10:10 AM Normal size right ventricle. Left Atrium: The left atrium is normal in size. Right Atrium: The right atrium is normal in size. Mitral Valve: The mitral valve is normal in appearance and function. Mild mitral valve regurgitation is present. Aortic Valve: There is no aortic valve regurgitation. The aortic valve is a bioprosthesis. AV max PG is 40mmHG. AV mean PG is 24mmHG.. Tricuspid Valve: The tricuspid valve is normal in appearance and function. Mild tricuspid regurgitation is present. The pulmonary artery pressure is mildly increased. RVSP is 50mmHG. . Pulmonic Valve: The pulmonic valve is normal in appearance and function. Aorta: The aorta is normal. Pericardium: No pericardial effusion. (No Signature Object) Patient: PORTER HOOKER Study Date: 05/03/2017 Page 2 of 2 10:10 AM [id number]
[2017-05-03] MEDS: HEPARIN 5,000 UNIT/0.5 ML SYR SC SCH ×2 (12:59→20:53)
--- NOTE | 2017-05-03 16:48 | ASMTCMCOM ---
CM Note CM Note Notes: 05/03/2017 Case Management Note Reviewed chart, spoke w/RN. PT is recommending home with outpatient rehab. There are no case management d/c needs identified d/t pt age, marital status and activity levels prior to admission. Case Management d/c poc; independent with follow up as directed. Case Management to follow. Date Signed: 05/03/2017 04:17 PM Electronically Signed By:Honey Fraga RN
[2017-05-03] MEDS ORDERED: SENNOSIDES/DOCUSATE SODIUM TAB PO PRN (21:00)
[2017-05-03] MEDS: METOPROLOL TARTRATE 50 MG TAB PO SCH (22:18)
--- NOTE | 2017-05-04 07:22 | SOAPPROG ---
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 Antithrombotic prophylaxis with ASA alone pending stability of rhythm. All tubes /wires out. 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 No sustained pressor support. No bradyarrhythmias. Significant volume overload well tolerated. Staggered intro of HF regimen in progress. Acute expected blood loss anemia with thrombocytopenia - Stable. No blood or blood products transfused. Platelet rebound noted. Nonobstructive CAD - Stable. Secondary prevention with ASA, statin, and BB uptitrated as tolerated. Hx mild RAD and CHERI on CPAP - Stable. Extubated without incident. Home CPAP in room. Chronic prn MDIs resumed. Prediabetes - Controlled by preop A1c of 6.8%. Transitioned from insulin to home Metformin regimen. Disposition - home today or tomorrow without services. Subjective: Feels well. Denies pain/SOB. Walking without a problem. Overall swelling going down. Objective: Vital Signs Temp Pulse Resp BP Pulse Ox 36.6 C 81 18 117/60 95 05/04/17 04:00 05/04/17 04:00 05/04/17 04:00 05/04/17 04:00 05/04/17 04:00 Laboratory Results 05/03/17 05:00 05/04/17 05:30 05/03/17 05/04/17 05/05/17 05:59 05:59 05:59 Intake Total 1999 1350 Output Total 4942 4828 Balance -565 -2600 Physical Exam - Physical Exam General Appearance: WD/WN, alert, no apparent distress EENT: No scleral icterus (R), No scleral icterus (L) Neck: normal inspection Respiratory: No respiratory distress Cardiac/Chest: No regular rate, rhythm Abdomen: non-tender, soft, No distended Skin: normal color, warm/dry Extremities: pedal edema Neuro/Psych: no motor/sensory deficits, alert, normal mood/affect, oriented x 3 ICD10 Worksheet Patient Problems: Problems Problem Status Onset Acute blood loss anemia Acute Aortic stenosis Acute Status post combined aortic root and valve replacement using stentless bioprosthetic aortic valve Acute
[2017-05-04] MEDS: HEPARIN 5,000 UNIT/0.5 ML SYR SC SCH (07:30)
[2017-05-04] MEDS: FUROSEMIDE 40 MG/4 ML VIAL IVP SCH ×2 (07:57→15:14)
[2017-05-04] MEDS: ENOXAPARIN 40 MG/0.4 ML SYR SC SCH (07:58)
[2017-05-04] MEDS: PANTOPRAZOLE SODIUM 40 MG TAB PO SCH (07:58)
[2017-05-04] MEDS: POTASSIUM CL 20 MEQ TAB PO SCH ×2 (07:58→20:26)
[2017-05-04] MEDS: ASPIRIN EC 81 MG TAB PO SCH (07:58)
[2017-05-04] MEDS: METOPROLOL TARTRATE 50 MG TAB PO SCH ×2 (07:58→20:26)
[2017-05-04] MEDS: metFORMIN HCL 500 MG TAB PO SCH ×2 (07:58→18:00)
[2017-05-04] MEDS: traMADol 50 MG TAB PO PRN ×2 (11:48→20:25)
[2017-05-04 20:03] VITALS: RESP 16
[2017-05-05] MEDS: traMADol 50 MG TAB PO PRN ×2 (02:23→11:19)
[2017-05-05 04:31] VITALS: TEMP 98.2
--- NOTE | 2017-05-05 06:33 | SOAPPROG ---
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 Antithrombotic prophylaxis with ASA alone pending stability of rhythm. All tubes /wires out. 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 No sustained pressor support. No bradyarrhythmias. Significant volume diuresed. Continue HF regimen as tolerated. Acute expected blood loss anemia with thrombocytopenia - Stable. No blood or blood products transfused. Platelet rebound noted. Nonobstructive CAD - Stable. Secondary prevention with ASA, statin, and BB uptitrated as tolerated. Hx mild RAD and CHERI on CPAP - Stable. Extubated without incident. Home CPAP in room. Chronic prn MDIs resumed. Prediabetes - Controlled by preop A1c of 6.8%. Transitioned from insulin to home Metformin regimen. Disposition - home today without services. Subjective: Sleeping comfortably. Objective: Vital Signs Temp Pulse Resp BP Pulse Ox 36.8 C 69 16 130/83 H 99 05/05/17 04:30 05/05/17 04:30 05/05/17 04:30 05/05/17 04:30 05/05/17 04:30 Laboratory Results 05/03/17 05:00 05/04/17 05:30 05/04/1718 05/06/17 05:59 05:59 05:59 Intake Total 1350 1300 Output Total 3950 3200 Balance -2600 -1900 Physical Exam - Physical Exam General Appearance: WD/WN, alert, no apparent distress EENT: scleral icterus (R) Neck: normal inspection Respiratory: No respiratory distress Cardiac/Chest: regular rate, rhythm Abdomen: No distended Skin: normal color, warm/dry Extremities: pedal edema (trace) ICD10 Worksheet Patient Problems: Problems Problem Status Onset Acute blood loss anemia Acute Aortic stenosis Acute Status post combined aortic root and valve replacement using stentless bioprosthetic aortic valve Acute
[2017-05-05] MEDS: ASPIRIN EC 81 MG TAB PO SCH (08:39)
[2017-05-05] MEDS: PANTOPRAZOLE SODIUM 40 MG TAB PO SCH (08:39)
[2017-05-05] MEDS: METOPROLOL TARTRATE 50 MG TAB PO SCH (08:39)
[2017-05-05] MEDS: metFORMIN HCL 500 MG TAB PO SCH (08:39)
[2017-05-05] MEDS: ENOXAPARIN 40 MG/0.4 ML SYR SC SCH (08:41)
[2017-05-05 08:42] VITALS: BP 126/75; PULSE 70
--- NOTE | 2017-05-05 08:58 | PDDCSUM ---
Discharge Summary Discharge Summary: DATE OF ADMISSION: 04/30/17 DATE OF DISCHARGE: 05/05/17 DISPOSITION: Home, self-care PRINCIPAL ADMISSION DIAGNOSIS: Bicuspid aortic valve with severe stenosis PRINCIPAL DISCHARGE DIAGNOSES: 1. Acute systolic on chronic diastolic congestive heart failure 2. Small aortic annulus and LV outflow tract 3. Severe left ventricular hypertrophy 4. Status post aortic valve and root replacement with a porcine xenograft 5. Status post prophylactic clip ligation of the left atrial appendage 6. Acute expected blood loss anemia with thrombocytopenia HISTORY OF PRESENT ILLNESS: 56 yo male with severe and class III exertional symptoms admitted for elective AVR. PERTINENT PAST MEDICAL HISTORY: Mild diffuse coronary atherosclerosis; mild LV diastolic dysfunction; thickened MV with mild MR; essential HTN; pulmonary HTN; CHERI on CPAP; obesity (BMI 35-39) ; prediabetes; asthma; cervical radiculopathy; anxiety MEDICATIONS ON ADMISSION: ASA 81 mg daily, metoprolol succinate 25 mg HS, metformin 500 mg BID, Proventil MDI 1-2 puffs IH daily prn, Advair 250/50 mcg 1 puff IH daily prn ALLERGIES/SENSITIVITIES: Penicillins causing an unknown reaction in childhood ART MUSEUM AIDE: Pulmonology/critical care ([place]) PROCEDURES/IMAGIN/2 (Tia): Aortic valve and root replacement with a 23 mm Medtronic Freestyle porcine root. Reimplantation of the coronary arteries. Prophylactic AtriClip ligation of the left atrial appendage. 05/03 (Rafael): Transthoracic echocardiogram ABBREVIATED HOSPITAL COURSE BY ACTIVE PROBLEM LIST: 1. BAV w sx severe - Found intraop to have a small aortic annulus and LVOT. Valve and root replaced with a porcine xenograft to avoid patient prosthetic mismatch. Antithrombotic prophylaxis with ASA alone. 2. Valvular cardiomyopathy with chronic diastolic CHF - Found intraop to be volume overloaded with an elev CVP and LVEF 40%. Stable early postop course, on transient pressor support and with aggressive diuresis. No dysrhythmias or renal insufficiency. HF regimen initiated and well tolerated. Postop echo notable for normal 4 chamber cavity size with recovery of LVEF to 60%. 3. Acute expected blood loss anemia with thrombocytopenia - Stable. No transfusions required. Platelet rebound noted. 3. Nonobstructive CAD - Stable. Secondary prevention with ASA, BB and statin. 4. Hx mild RAD and CHERI on CPAP - Stable. Extubated without incident. Home CPAP and prn MDIs resumed. 5. Prediabetes - Controlled by preop A1c of 6.8%. Transitioned from insulin to home Metformin regimen. DISCHARGE CLINICAL INFORMATION: Sternum grossly stable. Sternotomy CDI, sutured, +Dermabond. HR 60s-70s. SBP 100s. SpO2 76% RA, correcting to > 90% on 1 Lpm O2. Wt 3.3 kg above admission at 99.3 kilos. Hgb 10.3, HCT 31.1, Plt 103 , Na 141, K 4.3, Cr 0.8 DISCHARGE MEDICATIONS: As on admission with the following adjustments: Hold Toprol XL NEW prescriptions: 1. Metoprolol tartrate 50 mg BID. 2. Lasix 40 mg daily. 3. KlorCon 20 meq daily. 4. Tramadol 50 mg q 4-6 hr prn incisional discomfort. 5. Oxygen @ 1 lpm continuously, or as directed by SpO2. FOLLOW UP APPOINTMENTS: 1. CV surgery: with Dr Weber at [facility] on 05/11 at 10:15am. 2. Cardiology: with Dr Hall at [facility] within 4-6 weeks. Appointment to be established during surgical visit. FOLLOW UP TESTING: BMP and CXR prior to surgical appointment.
[2017-05-05] MEDS ORDERED: FUROSEMIDE 40 MG TAB PO SCH (09:00)
[2017-05-05] MEDS ORDERED: POTASSIUM CL 20 MEQ TAB PO SCH (09:00)
[2017-05-05 10:18] VITALS: O2SAT 76
--- NOTE | 2017-05-05 10:21 | PDHOMEO2F ---
Home Oxygen Face to Face Home Orders: I certify that a physician or a nurse practitioner or physician's assistant county engineer has had a [id number] encounter with this patient on the date of this order due to the diagnosis listed, which relates to the primary reason the patient requires home oxygen. Alternative treatments have been tried, or considered, and deemed ineffective. It is anticipated that supplemental oxygen will result in improvement with treatment. Home oxygen qualifying diagnosis: chronic diastolic CHF Home oxygen secondary diagnosis: CHERI on CPAP SpO2 on room air (%): 76 Frequency of home oxygen needed: with activity Home oxygen liters per minute: 1 Home oxygen delivery device: nasal cannula, via CPAP Concentrator: Yes E-tanks for mobility and back up: Yes If ordering portable O2, is the patient mobile in the home?: Yes I certify that, based on these findings, the home oxygen is medically necessary for this patient for the following length of time. Length of time home oxygen needed: 99 years Home Oxygen Comment: unknown at this time
== END 2017-05-05 13:10 | disposition home or self-care (01) | DRG 219 ==
LOC: F3N 04-30 05:57 → F2N 04-30 10:27 → F2W 05-01 15:25
PROVIDERS: ADMIT Thoracic Surgery (Cardiothoracic Vascular Surgery); ATTEND Thoracic Surgery (Cardiothoracic Vascular Surgery)
PROC: 5A1221Z Performance of Cardiac Output, Continuous (ICD-10-PCS; principal; 2017-04-30 07:15)
PROC: 02L70CK Occlusion of Left Atrial Appendage with Extraluminal Device, Open Approach (ICD-10-PCS; principal; 2017-04-30 07:15)
PROC: 02RF08Z Replacement of Aortic Valve with Zooplastic Tissue, Open Approach (ICD-10-PCS; principal; 2017-04-30 07:15)
PROC: 02RX08Z Replacement of Thoracic Aorta, Ascending/Arch with Zooplastic Tissue, Open Approach (ICD-10-PCS; principal; 2017-04-30 07:15)
PROC: B24BZZ4 Ultrasonography of Heart with Aorta, Transesophageal (ICD-10-PCS; principal; 2017-04-30 07:15)
DX: I71.2 Thoracic aortic aneurysm, without rupture (principal); Q23.1 Congenital insufficiency of aortic valve; I50.41 Acute combined systolic (congestive) and diastolic (congestive) heart failure; I42.9 Cardiomyopathy, unspecified; I25.10 Atherosclerotic heart disease of native coronary artery without angina pectoris; G47.33 Obstructive sleep apnea (adult) (pediatric); I11.0 Hypertensive heart disease with heart failure; J45.909 Unspecified asthma, uncomplicated; E78.5 Hyperlipidemia, unspecified; D62 Acute posthemorrhagic anemia; D69.6 Thrombocytopenia, unspecified; M54.12 Radiculopathy, cervical region; K21.9 Gastro-esophageal reflux disease without esophagitis; E11.9 Type 2 diabetes mellitus without complications; K58.9 Irritable bowel syndrome, unspecified; F41.9 Anxiety disorder, unspecified; E66.01 Morbid (severe) obesity due to excess calories; Z88.0 Allergy status to penicillin; Z87.891 Personal history of nicotine dependence; Z68.34 Body mass index [BMI] 34.0-34.9, adult
CPT/HCPCS: 82947-QW; 97116-GP; 97161-GP; 97166-GO; 97530-GO; 97530-GP; 97535-GO; C1768; J0153; J0282; J0690; J1265; J1644; J1650; J1815; J1885; J1940; J2001; J2150; J2250; J2260; J2270; J2370; J2704; J2720; J2930; J3010; J3475; J7060; P9041

== ENCOUNTER → 2017-03-18 | Outpatient (CLI) | payer OTHER | LOC: FIMAGING 16:31 | PROVIDERS: ATTEND Thoracic Surgery (Cardiothoracic Vascular Surgery) | DX: R10.31 Right lower quadrant pain (principal) ==

== ENCOUNTER → 2017-05-11 | Outpatient (CLI) | payer OTHER | LOC: FIMAGING 08:27 | PROVIDERS: ATTEND Thoracic Surgery (Cardiothoracic Vascular Surgery) | DX: Z95.2 Presence of prosthetic heart valve (principal); Z98.890 Other specified postprocedural states; Z86.79 Personal history of other diseases of the circulatory system ==